=== PATIENT | female | born 1985 | race African-American/Black ===

== ENCOUNTER 2019-10-18 08:40 | Emergency (ER) | payer OTHER ==
[~2019-10-18] VITALS: Ht 165.1 cm; Wt 89.8 kg
[2019-10-18 08:43] VITALS: BP 105/70
== END 2019-10-18 09:40 | disposition home or self-care (01) ==
LOC: ER 08:40
DX: U07.1 COVID-19 (principal); E66.9 Obesity, unspecified; Z91.018 Allergy to other foods; Z88.2 Allergy status to sulfonamides; Z68.32 Body mass index [BMI] 32.0-32.9, adult

== ENCOUNTER 2019-10-28 20:18 | Emergency (ER) | payer OTHER ==
[~2019-10-28] VITALS: Ht 165.1 cm; Wt 89.8 kg
[2019-10-28] MEDS ORDERED: AMOXICILLIN500 M1 PO (21:20)
[2019-10-28 21:32] VITALS: BP 134/74
== END 2019-10-28 21:32 | disposition home or self-care (01) ==
LOC: ER 20:18
DX: H60.91 Unspecified otitis externa, right ear (principal); Z88.2 Allergy status to sulfonamides; Z91.018 Allergy to other foods